=== PATIENT | female | born 1975 | race African-American/Black ===

== ENCOUNTER 2017-11-03 12:54 | Emergency (ER) | payer SELFPAY ==
[~2017-11-03] VITALS: Ht 172.7 cm; Wt 81.5 kg
[2017-11-03 12:55] VITALS: BP 157/88; PULSE 78; RESP 16; TEMP 98.4; O2SAT 100
--- NOTE | 2017-11-03 13:58 | PD ---
HPI Chief Complaint: Headache Time Seen by Provider: 13:34 Travel History International Travel<30 days: No Contact w/Intl Traveler<30days: No Traveled to known affect area: No History of Present Illness HPI 42-year-old female presents to the emergency Department with complaint of right frontal headache that has been on and off for over a year. Reports blurry vision for over one year also. Someone out her work took her blood pressure today and it was in the 140s. Denies history of hypertension, although admits that she has not had medical care and does not know what her blood pressures normally run. She denies chest pain, shortness of breath, abdominal pain. Reports vomiting 2 days ago. Night fevers or recent illness. Denies focal deficits or weakness. Denies confusion, disorientation, change in mentation, slurred speech. He is change in gait. Has not taken any medications or drainage to alleviate her symptoms. Rates headache 8/10. Describes it as a stabbing sensation. No known relieving or aggravating factors. Denies allergies. Denies significant past medical history. No primary care provider. Has no other complaints. No other modifying factors or associated signs and symptoms. [facility] Past Medical History Medical History: Denies Significant Hx ?: Not Past Surgical History Surgical History: No Previous Surgery Social History Alcohol Use: Yes (wine socially ) Tobacco Use: No Substance Use: No Allergies-Medications (Allergen,Severity, Reaction): Coded Allergies: No Known Allergies (Unverified , 11/03/17) Review of Systems Except as stated in HPI: all other systems reviewed are Neg Physical Exam Narrative GENERAL: Well-nourished, well-developed black female patient, in no acute distress SKIN: Warm and dry. HEAD: Atraumatic. Normocephalic. No Facial droop noted. Tongue midline. Finger to nose test normal. EYES: Pupils equal and round at 3 mm with brisk reaction. No scleral icterus. No injection or drainage. PERRLA. EOMI. ENT: Mucosa pink and moist. Airway patent. NECK: Trachea midline. No lymphadenopathy. CARDIOVASCULAR: Regular rate. RESPIRATORY: No accessory muscle use. GASTROINTESTINAL: Flat. MUSCULOSKELETAL: No obvious deformities. No clubbing. No cyanosis. No edema. NEUROLOGICAL: Awake and alert. Oriented 4. No obvious cranial nerve deficits. Motor grossly within normal limits. Normal speech. No ataxia. No mid -line drift. Upper or lower extremity drift. Moves all extremities. 5/5 strength to all extremities. PSYCHIATRIC: Appropriate mood and affect; insight and judgment normal. Data Data Last Documented VS Vital Signs Date Time Temp Pulse Resp B/P (MAP) Pulse Ox O2 Delivery O2 Flow Rate FiO2 11/03/17 16:36 11/03/17 12:55 98.4 78 16 100 Room Air Orders Orders Ct Brain W/O Iv Contrast(Rout) (11/03/17 ) Ed Urine Pregnancytest Poc (11/03/17 13:38) Ketorolac Inj (Toradol Inj) (11/03/17 16:00) Ed Discharge Order (11/03/17 16:36) [facility] Medical Decision Making Medical Screen Exam Complete: Yes Emergency Medical Condition: Yes Medical Record Reviewed: Yes Differential Diagnosis Cephalgia, tension headache, migraine headache, hypertension, high blood pressure Narrative Course 42-year-old female with right-sided frontal headache and blurred vision. This was been going on for over a year. Blood pressure was elevated at work today in the 140s and she was concerned. Blood pressure in the ER is 157/88. Patient does not know her baseline blood pressure she has not had medical care for a prolonged amount of time. Denies shortness of breath, chest pain. Neuro exam is unremarkable. CT head ordered. 1549: CT head concludes: Head CT 11/03/17 0000 Signed Impressions: Service Date/Time: Friday, November 03, 2017 15:20 - CONCLUSION: Negative noncontrast head CT Pete Franklin MD CT findings discussed with the patient. Toradol ordered. 1637: She reports improvement in symptoms. Rates headache 2/10. Blood pressure is 147/95. Instructed patient to follow up primary care provider/ [facility] in regards to elevated blood pressure. Diagnosis Primary Impression: Headache Qualified Codes: R51 - Headache Additional Impression: Elevated blood pressure reading Referrals: [facility] Primary Care Physician Patient Instructions: General Headache (ED), General Instructions, Hypertension (ED) Additional Instructions: Ibuprofen or Tylenol as directed and as needed to reduce headache Get plenty of rest: do not over sleep rest and relax in a dark, quiet room as needed Place an ice pack on the back of her neck to reduce head pain as needed Keep a headache diary of what triggers her headaches and what treatment is most effective Avoid identifiable triggers Avoid smoking, alcohol and caffeine consumption Reduce stress Follow-up with primary care provider within 1-2 days Follow-up with neurology Return immediately to the emergency department with worsening symptoms Med/Other Pt SpecificInfo: Prescription(s) given Scripts Ibuprofen (Ibuprofen) 800 Mg Tab 800 MG PO Q6HR Y for PAIN, #30 TAB 0 Refills Prov: Sudha Mcconnell 11/03/17 Disposition: 01 DISCHARGE HOME Condition: Stable Sudha Mcconnell Nov 03, 2017 13:58
--- NOTE | 2017-11-03 15:28 | RADRPT ---
EXAM DATE/TIME: 11/03/2017 15:20 [place] COMPARISON: No previous studies available for comparison. INDICATIONS : Headaches with photophobia. RADIATION DOSE: 37.53 CTDIvol (mGy) MEDICAL HISTORY : None SURGICAL HISTORY : None. ENCOUNTER: Initial ACUITY: 1 day PAIN SCALE: 8/10 LOCATION: Bilateral cranial TECHNIQUE: Multiple contiguous axial images were obtained of the head. Using automated exposure control and adj ustment of the mA and/or kV according to patient size, radiation dose was kept as low as reasonably a chievable to obtain optimal diagnostic quality images. DICOM format image data is available electro nically for review and comparison. FINDINGS: CEREBRUM: The ventricles are normal for age. No evidence of midline shift, mass lesion, hemorrhage or acute in farction. No extra-axial fluid collections are seen. POSTERIOR FOSSA: The cerebellum and brainstem are intact. The 4th ventricle is midline. The cerebellopontine angle i s unremarkable. EXTRACRANIAL: The visualized portion of the orbits is intact. SKULL: The calvaria is intact. No evidence of skull fracture. CONCLUSION: Negative noncontrast head CT Pete Franklin MD on November 03, 2017 at 15:26 Board Certified Radiologist. This report was verified electronically.
[2017-11-03] MEDS ORDERED: KETOROLAC TROMETHAMINE 60 MG/2 ML (IM) VIAL IM ONE (16:00)
[2017-11-03 16:35] VITALS: BP 137/93
[2017-11-03] MEDS ORDERED: IBUP1TAB7 PO (16:38)
== END 2017-11-03 16:59 | disposition home or self-care (01) ==
LOC: NEPD 12:54
DX: R51 Headache (principal); R03.0 Elevated blood-pressure reading, without diagnosis of hypertension; H53.8 Other visual disturbances
CPT/HCPCS: 70450; 84703; 96372; 99285; J1885